=== PATIENT | male | born 1980 | race African-American/Black ===

== ENCOUNTER → 2022-10-25 14:23 | Outpatient (BNVA) | payer OTHER, SELFPAY | PROVIDERS: PCP Internal Medicine; Visit Provider Neurological Surgery ==

== ENCOUNTER 2023-01-01 06:36 | Inpatient (IN) | payer OTHER, SELFPAY ==
[2022-12-19 14:39] VITALS: BMI 36.9
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
[2023-01-01] VITALS (21 sets, daily range): BP systolic 111–147; BP diastolic 61–87; PULSE 64–95; RESP 16–20; TEMP 36.1–36.6; O2SAT 95–100
--- NOTE | ~2023-01-01 | FL_ITS ---
EXAMINATION: XR FLUOROSCOPY WITH IMAGES CLINICAL INFORMATION: Postop COMPARISON: None available. TECHNIQUE: Fluoroscopy Supervised By: Dr. Garibay. Fluoroscopy Time: 0.7, 0.4 and 1 minutes. Cumulative Dose: 66, 32, 89 mGy. DAP: 0.56, 111.1 Gycm2. Images: 9). FINDINGS: Serial radiographs demonstrate sequential initial imaging demonstrating fusion at the L5-S1 levels both interbody and posteriorly. FL/FL guidance in OR IMPRESSION: Status post fusion at L5-S1.
--- NOTE | 2023-01-01 07:23 | MHC.SHP ---
Pre-Procedural Eval Section A Date of Service: 01/01/23 The patient is an INPATIENT: No The History & Physical has been completed within 30 days and I have reviewed it.: No Section B Chief Complaint: Spondylolisthesis, lumbosacral,radiculopathy, Details of Present Illness: back pain with radiculopthy Relevant Family History (Specify if Yes): No Relevant Social History: None Present Medications: see Short Stay Collaborative assessment Medical History: No relevant PMH History of Previous Operations: No relevant previous surgery Allergies: Allergies Allergy/AdvReac Type Severity Reaction Status Date / Time No Known Allergies Allergy Verified 12/18/22 09:55 Review of Systems Sugical H&P ROS: Negative: Constitution, Cardiovascular, Respiratory, Neurological, Psychiatric, Hem-Onc, Allergic/Immunologic, Gastrointestinal, Genitourinary, Musculoskeletal, Integumentary, Endocrine and Eyes/Ears/Nose/Throat Exam Surgical H&P Exam: Not Evaluated: HEENT, Not Evaluated: Heart, Not Evaluated: Lungs, Not Evaluated: Extremities, Not Evaluated: Abdomen, Not Evaluated: Skin and Not Evaluated: Neurological Plan Diagnosis/Plan: Unchanged I have reviewed the history and physical and performed a pertinent physical examination on my patient. No changes have occurred unless specified. ALIF/OLIF L5-S1 Time Spent With Patient Time: Total time managing care of this patient today ___10_ minutes.
--- NOTE | 2023-01-01 08:07 | PHA.MEDREC ---
Pharmacy Consult ? Medication Reconciliation Pharmacy has completed the medication reconciliation. Completed by RN, unconfirmed methadone until form received Jose G
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
--- NOTE | 2023-01-01 13:51 | HE.PHANOTE ---
re methadone 66mg, dosed from [facility]. pt got 10 take home bottles through 01/01. last dose letter in pt chart anival
[2023-01-01] MEDS: Acetaminophen 1,000 MG/100 ML PIGGYBACK 400 MG IV ×2 (14:18→19:44)
[2023-01-01] MEDS: oxyCODONE HCl Immed Release 5 MG TABLET 10 MG PO ×2 (15:01→19:06)
--- NOTE | 2023-01-01 16:24 | PC.NURSE ---
patient ambulated with PT, did well.
--- NOTE | 2023-01-01 16:42 | PC.NURSE ---
lower back drsg chnged on a left,saturated with bloody drainage
[2023-01-01] MEDS: Cholecalciferol (Vitamin D3) 25 MCG TABLET PO (17:05)
[2023-01-01] MEDS: ceFAZolin Sodium/Dextrose,Iso 2 GM/50 ML PIGGYBACK IV ×2 (17:07→22:27)
[2023-01-01] MEDS: Ketorolac Tromethamine 15 MG/ML VIAL IVPUSH (18:25)
--- NOTE | 2023-01-01 18:36 | HO.NEURO.PN ---
Neurosurgery Operative Note Date of Service: 01/01/23 Narrative: Postop day 0 Doing well after L5-S1 interbody fusion using oblique approach. Patient denies any tingling numbness or legs. He is experiencing back pain as expected. Afebrile, vital signs stable Strength full in bilateral lower extremities, back dressings are stain, the left-sided stab incisions on the back have been reinforced. Abdomen soft nondistended nontender obese with left lower quadrant incision clean and dry Impression: Postop day 0. L5-S1 oblique lumbar interbody fusion, clinically stable, will continue with pain protocols and plan for discharge tomorrow. He did not wish to get at dose of methadone today. He will restart tomorrow. Patient seen at bedside with Dr. Garibay.
[2023-01-02] MEDS: Ketorolac Tromethamine 15 MG/ML VIAL IVPUSH ×3 (00:14→12:37)
[2023-01-02] MEDS: Acetaminophen 1,000 MG/100 ML PIGGYBACK 400 MG IV ×2 (01:58→07:41)
[2023-01-02] MEDS: ceFAZolin Sodium/Dextrose,Iso 2 GM/50 ML PIGGYBACK IV (04:47)
[2023-01-02] MEDS: oxyCODONE HCl Immed Release 5 MG TABLET 10 MG PO (04:50)
[2023-01-02 06:00] VITALS: BP 109/56; PULSE 67; RESP 16; TEMP 36; O2SAT 94
[2023-01-02] MEDS: Sennosides/Docusate Sodium TABLET 1 TAB PO (07:41)
[2023-01-02] MEDS: Sertraline HCL 50 MG TABLET PO (07:41)
[2023-01-02] MEDS: Cholecalciferol (Vitamin D3) 25 MCG TABLET PO (07:41)
[2023-01-02 07:47] VITALS: BP 126/68; PULSE 64; RESP 16; TEMP 36.1; O2SAT 98
--- NOTE | 2023-01-02 12:02 | MHC.CM.PN ---
pt is independent lives with his gets metrhadone from [facility] has own ride home cm intervention not indicated dc plan home no william
--- NOTE | 2023-01-02 12:03 | HO.NEURO.PN ---
Neurosurgery Operative Note Date of Service: 01/02/23 Narrative: Postop day 1. Anterior lumbar interbody fusion clinically doing okay, cannot tell if his leg pain is better yet, no night tingling numbness or weakness. He is voiding okay and tolerating a diet thus far. Pain is reasonably well controlled. We will give him enough oxycodone for week and then he will resume his methadone at the clinic. Afebrile, vital signs stable physical exam: Patient is awake alert oriented x3 no acute distress, full strength, abdomen soft nondistended nontender, obese left lower quadrant incision clean and dry, back dressings have been reinforced no active bleeding impression: Postop day 1. Anterior lumbar interbody fusion, clinically doing okay, the patient has met all criteria for discharge will be sent home. Patient seen at bedside with Dr. Garibay.
--- NOTE | 2023-01-02 12:05 | P.DS_ITS ---
DS: Providers Provider Date of Service: 01/01/23 Date of admission: 01/01/23 06:36 Date of discharge: 01/02/23 Primary care physician: Nabeel Malhotra MD DS: Diagnosis Discharge Diagnosis (1) Lumbar back pain with radiculopathy affecting left lower extremity: Status: Acute DS: Summary Time Spent with Patient Time attestation: Total time managing care of this patient today ____ minutes. Discharge coordination time: Less than 30 minutes Quality: Safe Use of Opioids Does Pt have an Active Cancer Diagnosis on the Problem List?: No Quality: Stroke Does the patient have a stroke diagnosis?: No Physical Exam Vital Signs: Vital Signs: Last Vital Signs Temp 96.9 F 01/02/23 07:47 Pulse 64 01/02/23 07:47 Resp 16 01/02/23 07:47 BP 126/68 01/02/23 07:47 Pulse Ox 98 01/02/23 07:47 O2 Del Method Room Air 01/02/23 07:47 O2 Flow Rate 2 01/01/23 15:51 BMI result Body Mass Index 36.9 Discharge Plan Discharge Anticipated Discharge Date/Time: 01/02/23 12:06 Patient Disposition: Home, Self-Care Discharge Diagnosis: L5-S1 DDD, OLIF Referrals: Nabeel Malhotra MD [Primary Care Provider] - 1 Week Discharge Medications: New oxycodone 5 mg tablet See Rx Instructions .ROUTE .COMPLEX PRN (Reason: pain) Qty: 40 0RF Rx Instructions: 1-2 tabs po q 4 hours prn pain Partial Fill upon patient request. Continued sennosides-docusate sodium [Senexon-S] 8.6-50 mg tablet 1 tab PO DAILY gabapentin 300 mg capsule 300 mg PO TID PRN (Reason: nerve pain) albuterol sulfate [Ventolin HFA] 90 mcg/actuation HFA aerosol inhaler 2 puff inhalation Q4-6H PRN (Reason: Wheezing) sertraline 50 mg tablet 50 mg PO QAM cholecalciferol (vitamin D3) [Vitamin D3] 25 mcg (1,000 unit) capsule 25 mcg PO QAM methadone 10 mg/5 mL Solution 66 mg PO DAILY Discharge Orders: Discharge Order (Routine); Ordered 01/02/23 Ordered By: Trent Robertson Diet: Advance to usual diet Activity on Discharge: As tolerated Stand Alone Forms: Patient Portal Discharge page Activity Restrictions/Additional Instructions: After your spinal surgery we ask you to observe the following restrictions/guidelines: Activity: It is normal to feel some discomfort as you increase your activity, but that will improve with time. We ask you avoid heavy lifting or acitivities that cause pain. As a general rule, 8lbs is a safe limit for lifting right after surgery. Walk as much as you feel comfortable but not to exhaustion. You will feel extra tired the first few days after surgery. Stay well hydrated. It is OK to walk up and down stairs You may return to driving when you are off narcotics (such as vicodin, oxycodone, dilaudid, etc), and you are back to normal functional capacity. If you have any concerns please check with office before driving. Return to work is specific to each patient and each surgery, so please speak wit h your doctor/PA at first follow up. Please bring paperwork such as FMLA at that time if you need it filled out. Medications: We will give you a short supply of narcotics after surgery (usually one weeks worth). If you need more please call the office but do not use more than prescribed. You will need to give our office 48 hours notice if you need narcotics refilled and we do not fill narcotics on weekends or evenings. If you are on a narcotic, it is a good idea to take a stool softener such as colace or senna to avoid constipation If you take blood thinner such as aspirin, Plavix, Coumadin, Effient, Eliquis etc for conditions such as Afib, DVT, Pulmonary embolus, coronary disease, stents etc please speak with your surgeon about specific details as to when you can resume these medications. You can resume NSAIDs on post op day 1 (eg: Motrin, Naproxen, etc). Follow up: Please call the office, , after surgery to arrange a 3 week follow up for wound check. Wound Care: You may remove your dressing on the first day after surgery. You may leave open to air. Please do not remove the steri strips underneath. they will fall off on their own in one week. IT IS NORMAL FOR THE WOUND TO OOZE OR BE BLOODY FOR A FEW DAYS AFTER SURGERY. IF THIS HAPPENS JUST PLACE NEW DRESSING OVER IT TO AVOID STAINING CLOTHES. You may shower on post op day # 1 We ask that you do not let the water soak the wound. If it does get wet, just towel dry lightly. Please do not scrub your incision or place any type of chemical/ointment on the wound. No tub baths, pools or jacuzzis for one month. If you have any leaking or redness from your wound, or fevers, please call office Care Plan Goals: Discharge home Health Concerns: none Plan of Treatment: recover from surgery Assessment: stable
[2023-01-02] MEDS: methADONE HCl 20 MG/2 ML ORAL.CONC 66 MG PO (12:37)
--- NOTE | 2023-01-02 13:02 | MHC.CM.PN ---
pt dcd home with home pt
--- NOTE | 2023-01-02 13:13 | P.F2F_ITS ---
Service Date Service Date: 01/02/23 Encounter Date of encounter: 01/02/23 Reasons for Services Signs and symptoms assessed: difficulty walking Reason for senior care: neurological assessment, wound care and postoperative assessment and/or care Reason for physical therapy: home safety and mobility and gait/transfer training Homebound: Leaving the home is medically contraindicated at this time without the asist of a device and/or another person due th the listed conditions above and below. Reason homebound: unsteady gait / fall risk and pain with ambulation Certification: Based on the above findings, I certify that this patient is confined to the home and needs intermittent senior care care, physical therapy and/or speech therapy, or continues to need occupational therapy. The patient is under my care, and I have initiated the establishment of the plan of care. The patient will be followed by a physician who will periodically review the plan of care. Time Spent With Patient Time: Total time managing care of this patient today ____ minutes.
--- NOTE | 2023-01-02 13:14 | P.DS_ITS ---
DS: Providers Provider Date of Service: 01/02/23 Date of admission: 01/01/23 06:36 Primary care physician: Nabele Malhotra MD DS: Diagnosis Discharge Diagnosis (1) Lumbar back pain with radiculopathy affecting left lower extremity: Status: Acute DS: Summary Time Spent with Patient Time attestation: Total time managing care of this patient today ____ minutes. Discharge coordination time: Less than 30 minutes Quality: Safe Use of Opioids Does Pt have an Active Cancer Diagnosis on the Problem List?: No Quality: Stroke Does the patient have a stroke diagnosis?: No Physical Exam Vital Signs: Vital Signs: Last Vital Signs Temp 96.9 F 01/02/23 07:47 Pulse 64 01/02/23 07:47 Resp 16 01/02/23 07:47 BP 126/68 01/02/23 07:47 Pulse Ox 98 01/02/23 07:47 O2 Del Method Room Air 01/02/23 07:47 O2 Flow Rate 2 01/01/23 15:51 BMI result Body Mass Index 36.9 Discharge Plan Discharge Anticipated Discharge Date/Time: 01/02/23 12:06 Discharge Diagnosis: L5-S1 DDD, OLIF Referrals: [facility] [Other] - 1 Week Nabeel Malhotra MD [Primary Care Provider] - 1 Week Discharge Medications: New oxycodone 5 mg tablet See Rx Instructions .ROUTE .COMPLEX PRN (Reason: pain) Qty: 40 0RF Rx Instructions: 1-2 tabs po q 4 hours prn pain Partial Fill upon patient request. Continued sennosides-docusate sodium [Senexon-S] 8.6-50 mg tablet 1 tab PO DAILY gabapentin 300 mg capsule 300 mg PO TID PRN (Reason: nerve pain) albuterol sulfate [Ventolin HFA] 90 mcg/actuation HFA aerosol inhaler 2 puff inhalation Q4-6H PRN (Reason: Wheezing) sertraline 50 mg tablet 50 mg PO QAM cholecalciferol (vitamin D3) [Vitamin D3] 25 mcg (1,000 unit) capsule 25 mcg PO QAM methadone 10 mg/5 mL Solution 66 mg PO DAILY Discharge Orders: Discharge Order (Routine); Ordered 01/02/23 Ordered By: Trent Robertson Diet: Advance to usual diet Activity on Discharge: As tolerated Stand Alone Forms: Patient Portal Discharge page Activity Restrictions/Additional Instructions: After your spinal surgery we ask you to observe the following restrictions/guidelines: Activity: It is normal to feel some discomfort as you increase your activity, but that will improve with time. We ask you avoid heavy lifting or acitivities that cause pain. As a general rul e, 8lbs is a safe limit for lifting right after surgery. Walk as much as you feel comfortable but not to exhaustion. You will feel extra tired the first few days after surgery. Stay well hydrated. It is OK to walk up and down stairs You may return to driving when you are off narcotics (such as vicodin, oxycodone, dilaudid, etc), and you are back to normal functional capacity. If you have any concerns please check with office before driving. Return to work is specific to each patient and each surgery, so please speak with your doctor/PA at first follow up. Please bring paperwork such as FMLA at that time if you need it filled out. Medications: We will give you a short supply of narcotics after surgery (usually one weeks worth). If you need more please call the office but do not use more than prescribed. You will need to give our office 48 hours notice if you need narcotics refilled and we do not fill narcotics on weekends or evenings. If you are on a narcotic, it is a good idea to take a stool softener such as colace or senna to avoid constipation If you take blood thinner such as aspirin, Plavix, Coumadin, Effient, Eliquis etc for conditions such as Afib, DVT, Pulmonary embolus, coronary disease, stents etc please speak with your surgeon about specific details as to when you can resume these medications. You can resume NSAIDs on post op day 1 (eg: Motrin, Naproxen, etc). Follow up: Please call the office, , after surgery to arrange a 3 week follow up for wound check. Wound Care: You may remove your dressing on the first day after surgery. You may leave open to air. Please do not remove the steri strips underneath. they will fall off on their own in one week. IT IS NORMAL FOR THE WOUND TO OOZE OR BE BLOODY FOR A FEW DAYS AFTER SURGERY. IF THIS HAPPENS JUST PLACE NEW DRESSING OVER IT TO AVOID STAINING CLOTHES. You may shower on post op day # 1 We ask that you do not let the water soak the wound. If it does get wet, just towel dry lightly. Please do not scrub your incision or place any type of chemical/ointment on the wound. No tub baths, pools or jacuzzis for one month. If you have any leaking or redness from your wound, or fevers, please call office Care Plan Goals: Discharge home Health Concerns: none Plan of Treatment: recover from surgery Assessment: stable Discharge Date/Time: 01/02/23 13:02
--- NOTE | 2023-01-29 10:54 | P.OP_ITS ---
Operative Note Operative Note Date of Service: 01/01/23 Narrative: The patient was brought to the operating room, positioned on the table supine and general anesthesia was administered. Patient was then turned to the right decubitus position with left side up. C-arm image was obtained in AP and lateral planes and anterior border of the spine and disk space projections were marked on the skin.The abdomen was clipped and then prepped and draped in the usual sterile fashion. After timeout was done, incision was made from 2 cm medial and inferior to the Anterior Superior iliac spine in oblique direction 5 cm long. It was brought through subcutaneous tissue and the external oblique aponeurosis in line with the skin incision and transverse and internal abdominal muscles were split along the fibers. The pre-peritoneal plane was entered, peritoneum was bluntly dissected off and iliac artery pulse was felt. Self- retaining retractor with two deep blades was inserted and peritoneum protected with moist gauzes. Left internal iliac vein was identified and dissection was carried along the medial surface of the iliac vein up to the bifurcation. The middle sacral vessels were transected and L5-S1 disc space was bluntly and sharply dissected using bipolar cautery staying directly on the surface of the spine. The midline of the disk space was marked with C-arm image guide. Dr. Garibay then proceeded with the corpectomy and fusion, which will be dictated separately by him. After this was done, hemostasis was checked and was excellent. Left ureter was examined prior to closure and was intact. There was good left external iliac artery pulse. Diluted 0.5% Marcaine and Lidocaine was injected in the fascia and subcutaneous tissue. The incision was irrigated and closed by layers using a 2-0 Vicryl for transverse fascia, 0 PDS for the external oblique, 3-0 Vicryl for subcutaneous tissue and 4-0 Monocryl for skin. Exo-fin glue was then applied.
== END 2023-01-02 13:02 | disposition home or self-care (01) | DRG 304 ==
LOC: HO.SSSA 07:37 → HO.S3 13:10
PROVIDERS: Admitting Provider Neurological Surgery; PCP Internal Medicine; Visit Provider Neurological Surgery
PROC: 0SG30AJ Fusion of Lumbosacral Joint with Interbody Fusion Device, Posterior Approach, Anterior Column, Open Approach (ICD-10-PCS; principal; 2023-01-01 07:30)
DX: M43.17 Spondylolisthesis, lumbosacral region (principal); F11.20 Opioid dependence, uncomplicated; Z87.891 Personal history of nicotine dependence; Z79.899 Other long term (current) drug therapy
CPT/HCPCS: 94640; 97116; 97161; C1713; J0131; J0690; J1100; J1170; J1885; J2405; J3010; L8699

== ENCOUNTER → 2023-01-01 06:36 | Outpatient (BNV) | payer OTHER, SELFPAY | PROVIDERS: Admitting Provider Neurological Surgery; PCP Internal Medicine; Visit Provider Neurological Surgery | DX: M43.17 Spondylolisthesis, lumbosacral region (principal); M54.16 Radiculopathy, lumbar region | CPT/HCPCS: 20930; 22558; 22612; 22840; 22853 ==